=== PATIENT | male | born 1975 | race Hispanic/Latino ===

== ENCOUNTER 2025-08-01 06:43 | Day surgery (SDC) | payer OTHER ==
[~2025-08-01] VITALS: Ht 167.6 cm; Wt 100.0 kg
[~2025-08-01 06:43] MED LIST: MIDAZOLAM HCL 5 MG/5 ML VIAL IV PRN; fentaNYL citrate 100 MCG/2 ML VIAL IV PRN
[2025-08-01 06:55] VITALS: BP 148/84
[2025-08-01] MEDS ORDERED: LACTATED RINGER'S 1,000 ML IV SCH (07:00)
[2025-08-01] MEDS ORDERED: IBLOOD GLUCOSE TEST STRIP 1 EA TEST VI PRN (07:00)
[2025-08-01] MEDS ORDERED: LIDOCAINE HCL 1% 5 ML SDV INJ ONE (07:00)
--- NOTE | 2025-08-01 07:03 | NUR ---
MURIEL () [phone] TO CALL AND UPDATE ONLY IF SOMETHING BAD IS HAPPENING.
[2025-08-01 07:07] LABS: BASOPHILS 0.5 % (0.2-1.2); BASOPHILS, ABSOLUTE 0.04 K/uL (0.01-0.08); EOSINOPHILS 1.2 % (0.8-7.0); EOSINOPHILS, ABSOLUTE 0.09 K/uL (0.04-0.54); LYMPHOCYTES 28.0 % (21.8-53.1); MCH 29.7 PG (25.7-32.2); MCHC 34.4 g/dL (32.3-36.5); MCV 86.3 fL (79.0-92.2); MONOCYTES 7.5 % (5.3-12.2); MONOCYTES, ABSOLUTE 0.56 K/uL (0.30-0.82); NEUTROPHILS 62.5 % (34.0-67.9); NEUTROPHILS, ABSOLUTE 4.64 K/uL (1.78-5.38); RBC 5.49 M/uL (4.63-6.08)
[2025-08-01 07:13] LABS: GLOMERULAR FILTRATION RATE,EST 86.0 mL/min (>60); UREA NITROGEN 10.0 mg/dL (7-18)
[2025-08-01] MEDS ORDERED: LIDOCAINE HCL 2% 5 ML SDV ONE (08:47)
--- NOTE | 2025-08-01 09:43 | NUR ---
08/01/25 0943 Racheal Agustin 0926- PT PRESENTS TO PACU, LEFT LATERAL POSITION, NON REACTIVE TO STIMULUS. BREATHING EVEN AND NON LABORED, O2 AT 6L PER MASK. LR INFUSING TO RH IV. ABD SOFT, NON DISTENDED. ALL MONITORS IN PLACE.
[2025-08-01 10:31] VITALS: BP 110/80
--- NOTE | 2025-08-02 15:01 | EKG ---
[facility] [address] [facility] [place] [address] Signed Normal sinus rhythm Left axis deviation Minimal voltage criteria for LVH, may be normal variant Abnormal ECG No previous ECGs available Confirmed by Juancarlos Grady MD () on 08/02/2025 3:01:17 PM Electronically Signed By: JUANCARLOS GRADY MD 08/02/25 1501 PATIENT NAME: NELLA PUENTES Electrocardiogram DATE OF : 75 PHYSICIAN: JUANCARLOS GRADY MD REPORT #: [id number] REPORT IS CONFIDENTIAL AND NOT TO BE RELEASED WITHOUT AUTHORIZATION
--- NOTE | 2025-08-04 15:06 | PATH ---
[facility] [address] [place], [place] [address] Signed SPECIMEN(S): A COLON POLYP AT 10 CM SPECIMEN SOURCE: A. COLON POLYP AT 10 CM CLINICAL HISTORY: Colon screening FINAL PATHOLOGIC DIAGNOSIS: Colon polyp at 10 cm: - Hyperplastic polyp. JLP MICROSCOPIC EXAMINATION: Histologic sections of all submitted blocks are examined by light microscopy. These findings, together with the gross examination, support the pathologic diagnosis. GROSS DESCRIPTION: The specimen, labeled and designated "Indu, colon polyp at 10 cm," is received in formalin and consists of two greco soft tissue fragments, ranging from 0.1-0.3 cm. Entirely submitted in (A1). VB (under the direct supervision of a pathologist) The Gross Description was prepared using a voice recognition system. The report was reviewed for accuracy; however, sound-alike word errors, addition and/or deletions may occur. If there is any question about this report, please contact Client Services. ADDITIONAL NOTES: Immunohistochemical and/or in situ hybridization studies if performed in this case included appropriate positive controls that reacted as expected. This test was developed and its performance characteristics determined by [facility]. It has not been cleared or approved by the U.S. Food and Drug Administration. The FDA has determined that such clearance or approval is not necessary. This test is used for clinical purposes. It should not be regarded as investigational or for research. [facility] is certified under the Clinical Laboratory Improvement Amendments of 1988 (CLIA) as qualified to perform high complexity clinical laboratory testing. PATIENT NAME: NELLA PUENTES PATHOLOGY DATE OF : 75 REPORT #: [id number] PHYSICIAN: LATONIA GARCIA PCP: ROD FORD PAC REPORT IS CONFIDENTIAL AND NOT TO BE RELEASED WITHOUT AUTHORIZATION [address] [address] Signed PERFORMING LABORATORY: Technical component was performed by [facility], [address] [place] [address] (CLIA# [id number]). Professional interpretation was performed by [facility], [address] [place] [phone] (CLIA#: [id number]). Diagnostician: Parish Lou MD Pathologist Electronically Signed 08/04/2025 Copies: ~ PATIENT NAME: NELLA PUENTES PATHOLOGY DATE OF : 75 REPORT #: [id number] PHYSICIAN: LATONIA GARCIA PCP: ROD FORD PAC REPORT IS CONFIDENTIAL AND NOT TO BE RELEASED WITHOUT AUTHORIZATION
== END 2025-08-01 10:25 | disposition home or self-care (01) ==
LOC: DS 06:43
PROVIDERS: Nurse Anesthetist, Certified Registered; ATTEND Surgery
PROC: 0DBP8ZX Excision of Rectum, Via Natural or Artificial Opening Endoscopic, Diagnostic (ICD-10-PCS; principal; 2025-08-01 08:00)
DX: Z12.11 Encounter for screening for malignant neoplasm of colon (principal); K62.1 Rectal polyp; I10 Essential (primary) hypertension; Z79.899 Other long term (current) drug therapy; Z88.8 Allergy status to other drugs, medicaments and biological substances
CPT/HCPCS: 00811; 36415; 80048; 85025; 93005; 93010; J2003; J2704; J7121